=== PATIENT | male | born 1970 | race Caucasian/White ===

== ENCOUNTER 2018-12-08 14:32 | Emergency (ER) | payer OTHER ==
[~2018-12-08] VITALS: Ht 177.8 cm; Wt 92.5 kg
[2018-12-08 14:55] VITALS: BP 161/97
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
--- NOTE | 2018-12-08 15:24 | RAD ---
Examination: 3 views of the right shoulder HISTORY: History of right shoulder injury COMPARISON: None available. Findings/ impression: The humerus head is within the glenoid. There is widened appearance of the acromioclavicular joint could be type I separation or there may be mild osteolysis of the distal clavicle. Comparison to contralateral side is recommended. Electronically signed by: Faisal Galarza MD (12/08/2018 3:21 PM) [id number]
[2018-12-08] MEDS ORDERED: HYDR-3164 PO (15:39)
== END 2018-12-08 15:52 | disposition home or self-care (01) ==
LOC: ER 14:32
DX: S49.91XA Unspecified injury of right shoulder and upper arm, initial encounter (principal); E78.00 Pure hypercholesterolemia, unspecified; Z98.890 Other specified postprocedural states; X50.0XXA Overexertion from strenuous movement or load, initial encounter; Y93.I9 Activity, other involving external motion; Y92.89 Other specified places as the place of occurrence of the external cause; Y99.8 Other external cause status
CPT/HCPCS: 73030; 99284

== ENCOUNTER → 2020-05-19 | Outpatient (CLI) | payer SELFPAY ==
[~2020-05-19] MED LIST: CARDIO; HYDR-3164 PO; LOSA-73 PO; SIMV10TA15 PO; UBID30CA9 PO
--- NOTE | 2020-05-19 09:54 | PDOC1 ---
INITIAL PAIN CONSULT DATE OF SERVICE: DOS: DATE: 05/19/20 TIME: 09:47 CHIEF COMPLAINT: Chief Complaint: Low back and left lower extremity pain HISTORY OF PRESENT ILLNESS: 49-year-old male presents history of pain low back left lower extremity for about 2 months not the result of any specific injury or accident that he is aware of is getting worse with time and is any increasing with radiation of pain in the low back in the posterior gluteus posterior thigh posterior lateral thigh lateral anterior thigh anterior medial thigh posterior calf anterior calf and into the foot and toes involving the sole of the foot with numbness and tingling. Patient describes the pain in the back is constant throbbing and in the leg is sharp and shooting with tingling numbness radiating into the left lower extremity. Patient reports no symptoms on the right side and significant fatigability with the left lower extremity walking more than about 5 to 10 minutes. Patient reports he must sit and rest usually better with sitting or laying down but has awakened from sleep about every 3 hours or so at night. Patient ports is not effective bowel bladder control can affect his ability walk it is more than about 10 to 15 minutes. Patient has had chiropractic treatment as well as traction done and has an aversion table which he is been using at home as well also doing daily exercises and stretching strengthening. Patient taking oxycodone 10 mg which does help but only "takes the edge off". Patient did have MRI scan lumbar spine showing L4-5 thickening of the ligamentum flavum with a 5 mm left eccentric disc protrusion disc material extends into the neural foramen bilaterally greater degree on the left with moderate right and moderate to severe left foraminal stenosis. Patient rates his disability rating 0-10 10 being the worst is a 9-10 in all categories family home responsibilities recreation social activity occupation sexual behavior life support activities and self-care activities. Patient reports no loss of motor function but significant fatigability left lower extremity with activity. PAST MEDICAL HISTORY: PMH: Hypertension, thyroid tumor nonmalignant PREVIOUS SURGERIES: Past Surgical Hx: Partial thyroidectomy 1997, right knee repair 1975, vasectomy 2000, right shoulder repair 2003, rotator cuff right shoulder repair also 2003, cervical fusion 2010 CURRENT MEDICATIONS: Current Meds: Active Scripts Medications Dose Route/Sig Max Daily Dose Days Date Category [cardio tab] 2 Tab BID 05/19/20 Reported Coq-10 (Ubidecarenone) 30 Mg Capsule 30 Mg PO DAILY 05/19/20 Reported Simvastatin 10 Mg Tablet 1 Tab PO QHS 05/19/20 Reported Losartan Potassium 50 Mg Tablet 50 Mg PO DAILY 05/19/20 Reported [place] 5-325 Tablet (Acetaminophen/Hydrocodone Bitart) 1 Each Tablet 1 Tab PO BID 5 12/08/18 Rx ALLERGIES; Allergies: Coded Allergies: No Known Drug Allergies (Unverified , 12/08/18) FAMILY HISTORY: Family Hx: No major medical problems or conditions that he is aware of SOCIAL HISTORY: Social Hx: Patient does not drink alcohol , smokes less than a pack a day has for 30 years and continues to smoke is lives with his spouse has 1 child living at home. Does not use any illegal illicit or recreational drugs. 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 Extraocular movements are intact and symmetrical. Oral cavity: Mucous membranes moist and pink. Dentition is intact. NECK: Shows anterior throat supple without palpable lymphadenopathy noted. Swallow reflex symmetrical. CHEST: Shows normal on inspection. Breath sounds are clear bilaterally, distant but no rales rhonchi or wheezes auscultated. HEART: Shows S1, S2 clear. No murmurs auscultated. ABDOMEN: Soft, nontender, nondistended, obese. No palpable organomegaly is noted. No rebound or guarding demonstrated. BACK: Shows spine grossly in the midline. Normal-appearing cervical lordotic curvature. There is slightly increased thoracic kyphosis, some minor flattening of the lumbar lordotic curvature. Lumbar paraspinous muscles show symmetrical on inspection, on palpation shows some moderate tenderness diffusely throughout the upper, middle and lower distribution of the paraspinous muscles bilaterally and also into the lower thoracic paraspinous musculature, firm and tender, but without specific trigger points, without radiation of pain. The patient has good rotational motion of the lumbar spine, both laterally as well as extension and flexion without significant difficulty. No tenderness over the spinous processes, sacrum or sacroiliac regions. EXTREMITIES: Lower extremities show deep tendon reflexes 2+ in the patellar and tendo calcaneus tendons. Motor exam is 5 on a scale of 5 with right dorsiflexion, extension, quadriceps and hamstring flexion and 4/5 on the left. Peripheral pulses are 1+ posterior tibial. No peripheral edema is noted bilaterally. Lower extremities are warm and dry to touch, equal in color and appearance. Straight leg raise noted to be negative on the right, left side is positive at approximately 40 degrees decreased with knee flexion. Gaenslen's and Adrian's maneuvers are negative as well. The patient is able to stand, stand on his toes without significant difficulty or loss of balance walks with a slight favoring gait does appear to favor the left lower extremity slightly not use any assistive device such as canes or walkers to ambulate. SKIN: Shows warm and dry, good turgor. No edema. No sores, rashes or bruising throughout. IMPRESSION: Impression: 49-year-old male with approximate 2-month history increasing pain low back left lower extremity in a radicular pattern following L4-5 dermatomal distribution MRI scan lumbar spine as noted Hypertension History of thyroid tumor Plan: Options were discussed with patient including conservative medical management, physical therapies, and interventional techniques. We will try with most conservative measures first and have patient undergo physical therapy and lumbar traction. Patient reports he has a facility that can perform this but is not had this done yet and we will have this tried first if not significant improved we did discuss potential interventional techniques can considering a lumbar epidural steroid injection, translaminar approach at the L4-5 level, If not significantly improved. Patient to follow-up after lumbar traction. CRISTOBAL BEDOYA MD May 19, 2020 09:53
== END | disposition home or self-care (01) ==
LOC: PNCL 08:16
PROVIDERS: ATTEND Anesthesiology
DX: M54.5 Low back pain (principal); M79.605 Pain in left leg; I10 Essential (primary) hypertension; F17.210 Nicotine dependence, cigarettes, uncomplicated; Z79.899 Other long term (current) drug therapy; Z98.890 Other specified postprocedural states; Z72.89 Other problems related to lifestyle
CPT/HCPCS: G0463

== ENCOUNTER → 2020-06-20 | Outpatient (CLI) | payer OTHER ==
[~2020-06-20] MED LIST changes: +DOCU-109 PO; +LISI20TA18 PO; +METH-38 PO; +NAPR-695 PO; +OMEP20TA63 PO; +VENTOLIN HFA18 GM INH
[2020-06-20 15:23] LABS: BASO # 0.2 x10^3/uL (0.0-0.2); BASO % 1 % (0-3); EOS # 0.2 x10^3/uL (0.0-0.7); EOS % 1 % (0-3); HEMOGLOBIN 14.8 g/dL (13.0-17.5); LYMPH % 24 % (24-48); MEAN CORPUSCULAR HEMOGLOBIN 33 pg (25-35); MEAN CORPUSCULAR HGB CONC 34 g/dL (31-37); MEAN CORPUSCULAR VOLUME 97 fL (79-100); MONO # 0.9 x10^3/uL (0.0-1.1); MONO % 7 % (0-9); NEUT # 8.5 x10^3/uL (1.8-7.7); NEUT % 67 % (31-73); PLATELET COUNT 318 x10^3/uL (140-400); RED BLOOD COUNT 4.52 x10^6/uL (4.30-5.70); RED CELL DISTRIBUTION WIDTH 13.4 % (11.5-14.5); WHITE BLOOD COUNT 12.7 x10^3/uL (4.0-11.0)
[2020-06-20 15:46] LABS: ALBUMIN 4.2 g/dL (3.4-5.0); ALBUMIN/GLOBULIN RATIO 1.4 (1.0-1.7); CALCIUM 9.8 mg/dL (8.5-10.1); CREATININE 0.8 mg/dL (0.7-1.3); GFR 102.3; POTASSIUM 5.3 mmol/L (3.5-5.1); TOTAL BILIRUBIN 0.3 mg/dL (0.2-1.0); TOTAL PROTEIN 7.2 g/dL (6.4-8.2)
== END ==
LOC: SURGPAT 13:20
PROVIDERS: ATTEND Neurological Surgery
DX: Z01.812 Encounter for preprocedural laboratory examination (principal); M51.16 Intervertebral disc disorders with radiculopathy, lumbar region; Z20.828 Contact with and (suspected) exposure to other viral communicable diseases
CPT/HCPCS: 80053; 85025; 87641; U0003

== ENCOUNTER 2020-06-23 07:12 | Day surgery (SDC) | payer OTHER ==
[~2020-06-23] VITALS: Ht 177.8 cm; Wt 88.5 kg
--- NOTE | 2020-06-23 06:36 | PREOP HP ---
DATE OF SERVICE: 06/23/2020 PREOPERATIVE HISTORY AND PHYSICAL DATE OF SURGERY: 06/23/2020 HISTORY OF PRESENT ILLNESS: The patient is a pleasant 49-year-old man who was having difficulty with low back pain and pain that radiates to his left buttock and left hip. He also reports numbness in his left posterior leg, ankles and toes. He feels that his left leg is weak. The problem began about 2 months ago without inciting event. His pain is 10/10. He says the pain is constant. Any activity increases his pain. There is no comfortable position. He is taking oxycodone every 4 hours. He saw a chiropractor, which gave him very minimal relief. He is scheduled for an epidural injection, but has not received that as of yet. He has been wearing a lumbar support brace. CURRENT MEDICATIONS: Oxycodone, lisinopril, simvastatin. PAST MEDICAL HISTORY: Cervical injury, hypertension. PAST SURGICAL HISTORY: Thyroid surgery, shoulder surgery, ACDF C5-C6, C6-C7 with Dr. Dioni Velez in 2009. FAMILY HISTORY: Diabetes, heart disease. 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 . Smokes 1 pack of cigarettes per day for 30 years. Drinks alcohol 1-2 times per month. ALLERGIES: No known drug allergies. REVIEW OF SYSTEMS: A 12-point review of systems was performed and is noncontributory except that mentioned above. PHYSICAL EXAMINATION: GENERAL: Alert, pleasant, in moderate distress because of pain. HEAD: Normocephalic, atraumatic. SKIN: Warm and dry. MUSCULOSKELETAL: Lumbar paraspinal muscle bulk is normal, restricted range of motion of the lumbar spine, [id number] tenderness of the lower lumbar spine with palpation, normal range of motion of the lower extremities bilaterally. EXTREMITIES: No clubbing, cyanosis or edema. NEUROLOGIC: Alert and oriented x 3, normal recent and remote memory, strength 5/5 in the lower extremities except 4+/5 EHL, sensory was intact to light touch in the lower extremities except decreased sensation in the L5 distribution. Reflexes were present and symmetric in the lower extremities, positive straight leg raising on the left, negative straight leg raising on the right, antalgic gait. IMAGING: I reviewed a lumbar MRI scan. On that study, there is a left-sided disk herniation at L4-L5 with moderate to marked left lateral recess stenosis including the left L5 nerve root impingement and finizpqk-ph-tqgylu left foraminal stenosis. ASSESSMENT AND PLAN: I believe his symptoms are related to the herniated disk at L4-L5 on the left. He has severe pain. The problem has been present for 2 months. He has weakness and decreased sensation associated with this. I recommended a microdiskectomy at L4-L5 on the left. I spoke with him about the surgery, the rationale, the technique, the risk and the expected postoperative course. He understands and would like to go ahead. NIDHI FREIRE MD DR: ANIKET/vincent JOB#: [id number] / [id number]
[~2020-06-23 07:12] MED LIST changes: +BACITRACIN 50,000 UNIT in IV NORMAL SALINE 1000ML BAG 1,000 ML IRR ONE; -DOCU-109 PO; +HYDROmorphone 2 MG/ML VIAL IV PRN; +IV RINGERS,LACTATED 1000ML 1,000 ML IV SCH; +LIDOCAINE 1% PF 2 ML VIAL. ID PRN; -METH-38 PO; +ONDANSETRON PF 4 MG/2 ML VIAL. IV PRN; +fentaNYL PF VIAL 100 MCG/2 ML VIAL IV PRN
[2020-06-23] MEDS ORDERED: GELATIN SPONGE SIZE 100. ONE (07:13)
[2020-06-23] MEDS ORDERED: KETOROLAC 60 MG/2 ML VIAL. ONE (07:13)
[2020-06-23] MEDS ORDERED: LIDOCAINE 1%/EPI 1:100,000 20 ML VIAL. ONE (07:13)
[2020-06-23] MEDS ORDERED: THROMBIN TOPICAL 20,000 UNIT SPRAY.SYRN KIT TP ONE (07:13)
[2020-06-23] MEDS ORDERED: fentaNYL PF VIAL 100 MCG/2 ML VIAL ONE ×3 (07:25→11:22)
[2020-06-23] MEDS ORDERED: PROPOFOL 10 MG/ML (20ML) VIAL. IV ONE (07:25)
[2020-06-23] MEDS ORDERED: SUCCINYLCHOLINE 200 MG/10 ML VIAL. ONE (07:25)
[2020-06-23] MEDS ORDERED: LIDOCAINE 2% PF 5 ML VIAL. ONE (07:25)
[2020-06-23] MEDS ORDERED: ONDANSETRON PF 4 MG/2 ML VIAL. ONE (07:26)
[2020-06-23] MEDS ORDERED: MIDAZOLAM HCL/PF 2 MG/2 ML VIAL. ONE (07:26)
[2020-06-23] MEDS ORDERED: DEXAMETHASONE SOD PHOS 20 MG/5 ML VIAL. ONE (07:26)
[2020-06-23] MEDS ORDERED: PROPOFOL 100 ML IV ONE (07:27)
[2020-06-23] MEDS ORDERED: REMIFENTANIL 1 MG VIAL. IV ONE ×2 (07:28→10:13)
[2020-06-23] MEDS ORDERED: PHENYLEPHRINE 10 MG/ML VIAL. ONE (07:33)
[2020-06-23] MEDS ORDERED: ROCURONIUM 50 MG/5 ML VIAL. ONE (07:34)
[2020-06-23] MEDS ORDERED: 0.9 % SODIUM CHLORIDE 20 ML VIAL. IJ ONE (10:13)
[2020-06-23] MEDS ORDERED: NEOSTIGMINE METHYLSULFATE 5 MG/5 ML SYRINGE. ONE (10:34)
[2020-06-23] MEDS ORDERED: SEVOFLURANE 61 TO 120 MINUTES. IH ONE (10:34)
[2020-06-23] MEDS ORDERED: GLYCOPYRROLATE 1 MG/5 ML VIAL. ONE (10:34)
[2020-06-23] MEDS: fentaNYL PF VIAL 100 MCG/2 ML VIAL IV PRN ×2 (11:25→11:42)
[2020-06-23] MEDS ORDERED: METH-38 PO (11:27)
[2020-06-23] MEDS ORDERED: DOCU-109 PO (11:27)
--- NOTE | 2020-06-23 11:28 | DISCH ---
DISCHARGE INSTRUCTIONS Condition on Discharge Condition on Discharge: Stable Activity After Discharge Activity Instructions for Disc: Activity as tolerated, Avoid exertion Other activity instructions: no driving for a week Bathing Instructions: Shower-keep dressing dry Lifting Instructions after Dis: No heavy lifting, No pulling or pushing, Do not lift >10 pounds Diet after Discharge Additional Diet Restrictions: resume home diet Wound Incision Care Wound/Incision Care: Ice to area for comfort Other wound/incision instructi: may remove dressing in 48 hours if dry then may shower, no soaking Contacting the after DC Call your doctor for: Concerns you may have Follow-Up Follow up with: Dr. Freire's nurse in 2 weeks [phone] NIDHI FREIRE MD Jun 23, 2020 11:28
[2020-06-23] MEDS ORDERED: MORPHINE SULFATE 2 MG/ML VIAL. ONE ×2 (11:44→12:06)
[2020-06-23] MEDS ORDERED: PROCHLORPERAZINE 10 MG/2 ML VIAL. ONE (11:45)
[2020-06-23] MEDS: MORPHINE SULFATE 2 MG/ML VIAL. IV PRN ×4 (11:51→12:33)
[2020-06-23] MEDS: PROCHLORPERAZINE 10 MG/2 ML VIAL. IV PRN ×2 (11:51→12:10)
[2020-06-23] MEDS ORDERED: HYDROcodone/APAP 5/325MG 1 TAB TABLET PO ONE (12:00)
[2020-06-23 12:40] VITALS: BP 132/76
--- NOTE | 2020-06-23 13:09 | OP ---
DATE OF SURGERY: 06/23/2020 PREOPERATIVE DIAGNOSIS: Herniated lumbar disc, L4-L5, left, with left lumbar radiculopathy. POSTOPERATIVE DIAGNOSIS: Herniated lumbar disc, L4-L5, left, with left lumbar radiculopathy. OPERATION PERFORMED: Hemilaminotomy and microdiscectomy, L4-L5, left. The operation was done with EMG monitoring, SSEP monitoring, fluoroscopy, microscopic dissection. SURGEON: Shawn Freire M.D. DIRECTOR OF SUSTAINABLE DESIGN: JAGRUTI Gramajo assisted with the surgery. She assisted with the exposure, the microdiscectomy as well as the closure. OPERATIVE INDICATIONS: The patient is a pleasant 49-year-old who developed intractable back and left leg pain, which failed conservative measures. On imaging studies, he was found to have a herniated lumbar disc at L4-L5 on the left and I recommended lumbar microsurgery. He understood the surgery, the risks, technique and expected postoperative course and wished to go ahead. DESCRIPTION OF PROCEDURE: Following general endotracheal anesthesia, the patient was positioned prone on the Agustin table. Lumbar region prepped and draped in standard fashion. STEPHANIE hose and AV impulse boots were applied for DVT prophylaxis. The microscope was draped. Fluoroscopy was draped and brought into field. Monitoring was established. Ancef 2 grams was given less than 1 hour prior to initiation of the surgery. Using fluoroscopic guidance, incision was made at L4-5. I dissected down through skin and subcutaneous tissue, reflected the paraspinal muscles, placed a Fallon microdisk retractor. I brought in the microscope, burred down a generous hemilaminotomy on the left, peeled away thickened ligamentum flavum and performed a generous partial foraminotomy. I retracted the root medially and entered the disc space and performed discectomy with pituitary rongeurs. Then, I began to explore further inferiorly and found a large subligamentous fragment, which I teased back and removed, which fully decompressed the entire region. I further explored. There were no retained fragments. The wound area was very well decompressed. The disc bulging, which had been present initially, had resolved. The root was very free. I irrigated copiously with antibiotic solution. Hemostasis was excellent. I closed the wound then with absorbable sutures and skin was closed with 4-0 subcuticular stitch. The operation went very well and the patient taken to recovery room in excellent condition. I was quite pleased with the surgery. SHAWN FREIRE MD DR: MORENA/vincent JOB#: [id number] / [id number] REGINALD
--- NOTE | 2020-06-27 14:08 | PATHOLOGY ---
[facility] Accession Number: [id number] . 01 Material submitted: . vertebral column - LUMBAR DISC AND DECOMPRESSION . 01 Clinical history: . LUMBAR HERNIATED DISC LUMBAR MICRODISCECTOMY L4-5 . 02 Diagnosis: Segments of fibrocartilaginous, fibroadipose, and skeletal muscle tissue and bone, lumbar disc and decompression: - Degenerative changes of fibrocartilaginous tissue. (JPM:[facility] 06/27/2020) QTP 06/27/2020 1155 Local . 02 Comment: There is no evidence of an acute inflammatory process or malignancy. (JPM:[facility] 06/27/2020) . 02 Electronically signed: . Jesus Lopez MD, Pathologist NPI- [id number] . 01 Gross description: . Received in formalin, labeled "Juan, Paulino, lumbar disc and decompression" are multiple irregular segments of mccarty-brown bone and soft tissue measuring 2.9 x 2.6 x 0.4 cm in aggregate. The specimen is entirely submitted in cassette A1.([facility]; 06/24/2020) GZA/GZA 06/27/2020 1154 Local . 02 Pathologist provided ICD-10: M51.36 . 02 CPT . [id number] Specimen Comment: A courtesy copy of this report has been sent to [phone], [phone] Specimen Comment: [phone], Specimen Comment: Report sent to ,DR ZAVALA / DR ISAACS Specimen Comment: A duplicate report has been generated due to demographic updates. Performed at: [address], [place], [place] [id number] MD Donnell Burrell MD Phone: [phone] Performed at: 02 [facility] [address], [place] [id number] MD Jesus Lopez MD Phone: [phone]
== END 2020-06-23 13:40 | disposition home or self-care (01) ==
LOC: SURG 07:12
PROVIDERS: ATTEND Neurological Surgery
DX: M51.16 Intervertebral disc disorders with radiculopathy, lumbar region (principal); E78.00 Pure hypercholesterolemia, unspecified; I10 Essential (primary) hypertension; K21.9 Gastro-esophageal reflux disease without esophagitis; M19.90 Unspecified osteoarthritis, unspecified site; F17.210 Nicotine dependence, cigarettes, uncomplicated; Z79.82 Long term (current) use of aspirin; Z79.899 Other long term (current) drug therapy; Z98.890 Other specified postprocedural states
CPT/HCPCS: 63030; 88304; 97116; 97162; 97530; J0330; J0690; J0780; J1100; J1885; J2250; J2270; J2370; J2405; J2704; J2710; J3010; J3490; J7030; 76000

== ENCOUNTER → 2020-10-05 | Outpatient (CLI) | payer OTHER ==
[~2020-10-05] MED LIST changes: -BACITRACIN 50,000 UNIT in IV NORMAL SALINE 1000ML BAG 1,000 ML IRR ONE; +BUPIVACAINE MPF 0.25% 10 ML VIAL. ONE; +DOCU-109 PO; -HYDROmorphone 2 MG/ML VIAL IV PRN; +IOHEXOL 180 MG/ML 10 ML VIAL. ONE; -IV RINGERS,LACTATED 1000ML 1,000 ML IV SCH; -LIDOCAINE 1% PF 2 ML VIAL. ID PRN; +METH-38 PO; -ONDANSETRON PF 4 MG/2 ML VIAL. IV PRN; -fentaNYL PF VIAL 100 MCG/2 ML VIAL IV PRN; +methylPREDNISolone ACETATE 80 MG/ML VIAL. ONE
--- NOTE | 2020-10-05 13:40 | PDOC ---
Progress Note - Pain Clinic Date of Service: DOS: DATE: 10/05/20 TIME: 13:37 Diagnosis: Dx: Lumbar to colopathy with lumbar degenerative disease and lumbar herniated disc History or Present Illness: HPI: 50-year-old male returns in follow-up status post initial evaluation and subsequent surgery with L4-5 laminectomy and discectomy patient did well after the surgery for few days and the pain returned significantly in the low back and left lower extremity. Patient had a new MRI scan showing recurrent disc herniation at the L4-5 level on the left side with significant radiculopathy in that dermatomal distribution. 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 Patient rates his pain is a 10 on scale 10 is worse over the past week 8+ on average and a 6 its least is an 8 today. Patient reports no new motor or sensory deficits no bowel or bladder incontinence. Physical Exam: VS: Blood pressure is 119/84 pulse 94 respirations 16 temperature is 98.4 F height is 5 feet 10 inches weight is 196 pounds PE: PHYSICAL EXAMINATION: GENERAL: The patient is awake, alert, oriented, appropriate, very pleasant demeanor HEENT: Shows normocephalic, atraumatic. Extraocular movements are intact and symmetrical. Oral cavity: Mucous membranes moist and pink. NECK: Shows anterior throat supple without palpable lymphadenopathy noted. Swallow reflex symmetrical. CHEST: Shows normal on inspection. Breath sounds are clear bilaterally, distant but no rales rhonchi. HEART: Shows S1, S2 clear. No murmurs auscultated. ABDOMEN: Soft, nontender, nondistended, soft. No palpable organomegaly is noted. No rebound or guarding demonstrated. BACK: Shows spine grossly in the midline. Normal-appearing cervical lordotic curvature. There is slightly increased thoracic kyphosis, some minor flattening of the lumbar lordotic curvature. Lumbar paraspinous muscles show symmetrical on inspection, on palpation shows some moderate tenderness diffusely throughout the upper, middle and lower distribution of the paraspinous muscles without specific trigger points, without radiation of pain. The patient has good rotational motion of the lumbar spine, both laterally as well as extension and flexion without significant difficulty. No tenderness over the spinous processes, sacrum or sacroiliac regions. EXTREMITIES: Lower extremities show deep tendon reflexes 2+ in the patellar and tendo calcaneus tendons. Motor exam is 5 on a scale of 5 with right dorsiflexion, extension, quadriceps and hamstring flexion and 4/5 on the left. Peripheral pulses are 1+ posterior tibial. No peripheral edema is noted bilaterally. Lower extremities are warm and dry to touch, equal in color and appearance. SKIN: Shows warm and dry, good turgor. No edema. No sores, rashes or bruising throughout. Procedure: Procedure: Options were discussed with the patient. Patient chart reviews his current medication regimen updated current review of systems updated today as well. We will proceed with a left-sided L4-5 transforaminal epidural injection today with fluoroscopic guidance. Risks were discussed including but not limited to: Bleeding, infection, possibility of epidural hematoma and subsequent neurological compromise, dural puncture, headaches, spinal cord and/or nerve damage, potential injection into the vertebral artery at that level and permanent ischemic damage, side effects of steroid medication, and poor results regarding pain control. Patient understands and wished to proceed. Patient will return to clinic in approximate 2 weeks for follow-up, was counseled as to return appointment activity level and side effects to be aware of. Medication Injected: Med Injected: Under sterile prep and drape patient was placed in prone position using C-arm f luoroscopic guidance to identify the L4-5 distribution oblique and slightly cephalad angled C arm. The left L4-5 target was identified and using lidocaine for anesthetizing the skin 22-gauge Frank pencil point needle was then used to enter the skin and into the subcutaneous tissues using direct C-arm fluoroscopic guidance to guide the needle into the transforaminal aspect of the left L4-5 vertebrae this was confirmed with lateral views showing the needle tip in the superior aspect of the paravertebral region. Aspiration was noted to be negative, -1.5 cc of contrast was then injected with good spread both medially into the epidural space as well as laterally along the nerve root without uptake and without distribution and uptake on digital subtraction. At this time, a solution containing 2 cc of 0.25% bupivacaine and 80 mg of Depo-Medrol was then injected. Needle was withdrawn and sterile bandage was applied. Patient tolerated procedure well had no immediate complications Condition at Discharge: Condition at Discharge: Condition at discharge stable, patient tolerated procedure well and had no co mplications. CRISTOBAL BEDOYA MD Oct 05, 2020 13:40
== END | disposition home or self-care (01) ==
LOC: PNCL 12:51
PROVIDERS: ATTEND Anesthesiology
DX: M51.36 Other intervertebral disc degeneration, lumbar region (principal); I10 Essential (primary) hypertension; E78.00 Pure hypercholesterolemia, unspecified; K21.9 Gastro-esophageal reflux disease without esophagitis; M19.90 Unspecified osteoarthritis, unspecified site; F17.210 Nicotine dependence, cigarettes, uncomplicated; Z79.899 Other long term (current) drug therapy; Z98.890 Other specified postprocedural states; Z72.89 Other problems related to lifestyle
CPT/HCPCS: 64483; J1040; J3490; Q9965

== ENCOUNTER → 2020-10-20 | Outpatient (CLI) | payer OTHER ==
[~2020-10-20] MED LIST changes: -BUPIVACAINE MPF 0.25% 10 ML VIAL. ONE; +methylPREDNISolone ACETATE 40 MG/ML VIAL. ONE
--- NOTE | 2020-10-20 11:03 | PDOC ---
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 Patient reports 1 day of decreased pain in the left leg and the pain returned fairly significantly after that. Patient reports still pain in the low back left lower extremity posterior gluteus lateral thigh anterior thigh medial thigh lateral calf and anterior calf described as aching and sharp shooting in the left leg stabbing radiating can be severe and unbearable with weightbearing walking standing or changing positions. Patient rates the pain is a 10 on scale 10 is worse over the past week 7 on average 7 its least is a 7 today. Patient reports no new motor or sensory deficits no new bowel or bladder incontinence or complaints. Physical Exam: VS: Blood pressure is 126/81 pulse 77 respirations 16 temperature 98.4 F height is 5 feet 10 inches weight is 193 pounds PE: PHYSICAL EXAMINATION: GENERAL: The patient is awake, alert, oriented, appropriate, very pleasant demeanor HEENT: Shows normocephalic, atraumatic. Extraocular movements are intact and symmetrical. Oral cavity: Mucous membranes moist and pink. Dentition is intact. NECK: Shows anterior throat supple without palpable lymphadenopathy noted. Swallow reflex symmetrical. CHEST: Shows normal on inspection. Breath sounds are clear bilaterally, coarse but no rales rhonchi or wheezes auscultated. HEART: Shows S1, S2 clear. No murmurs auscultated. ABDOMEN: Soft, nontender, nondistended obese. No palpable organomegaly is noted. No rebound or guarding demonstrated. BACK: Shows spine grossly in the midline. Normal-appearing cervical lordotic curvature. There is slightly increased thoracic kyphosis, some minor flattening of the lumbar lordotic curvature. Lumbar paraspinous muscles show symmetrical on inspection, on palpation shows some moderate tenderness diffusely throughout the upper, middle and lower distribution of the paraspinous muscles without specific trigger points, without radiation of pain. The patient has good rotational motion of the lumbar spine, both laterally as well as extension and flexion without significant difficulty. No tenderness over the spinous processes, sacrum or sacroiliac regions. EXTREMITIES: Lower extremities show deep tendon reflexes 2+ in the patellar and tendo calcaneus tendons. Motor exam is 5 on a scale of 5 with right dorsiflexion, extension, quadriceps and hamstring flexion and 4/5 on the left. Peripheral pulses are 1 posterior tibial. No peripheral edema is noted bilaterally. Lower extremities are warm and dry to touch, equal in color and appearance. SKIN: Shows warm and dry, good turgor. No edema. No sores, rashes or bruising throughout. Procedure: Procedure: Options were discussed with the patient. Patient chart was reviewed his his current medication regimen updated current review of systems updated today as well. We will proceed with a lumbar epidural steroid injection state translaminar approach with fluoroscopic guidance. Risks were discussed including but not limited to: Bleeding, infection, possibility of epidural hematoma and subsequent neurological compromise, dural puncture, headaches, spinal cord and/or nerve damage, side effects of steroid medication, and poor results regarding pain control. Patient understands and wished to proceed. Patient return to clinic in approximate 2 weeks for follow-up, was counseled as return appointment activity level and side effects to be aware of. Medication Injected: Med Injected: Procedure is lumbar epidural steroid injection under local anesthetic using sterile prep and drape at the L4-5 level using C-arm fluoroscopic guidance in both AP and lateral views medications injected is 120 mg Depo-Medrol + 10 mL preservative-free normal saline and 2 mL contrast- condition at discharge is stable patient tolerated procedure well had no complications. Condition at Discharge: Condition at Discharge: Condition at discharge stable, patient tolerated the procedure well and had no complications. CRISTOBAL BEDOYA MD October 20, 2020 11:03
--- NOTE | 2020-10-20 11:04 | PDOC4 ---
PROCEDURE Procedure Patient was consented for lumbar epidural steroid injection. Risks were dis cussed including but not limited to: Bleeding, infection, possibility of epidural hematoma and subsequent neurological compromise, dural puncture, headaches, spinal cord and/or nerve damage, side effects of steroid medication, and poor results regarding pain control. Patient understands and wished to proceed. Procedure is lumbar epidural steroid injection under local anesthetic using sterile prep and drape at the L4-5 level using C-arm fluoroscopic guidance in both AP and lateral views medications injected is 120 mg Depo-Medrol + 10 mL preservative-free normal saline and 2 mL contrast- condition at discharge is stable patient tolerated procedure well had no complications. CRISTOBAL BEDOYA MD October 20, 2020 11:04
== END | disposition home or self-care (01) ==
LOC: PNCL 10:03
PROVIDERS: ATTEND Anesthesiology
DX: M51.16 Intervertebral disc disorders with radiculopathy, lumbar region (principal); M96.1 Postlaminectomy syndrome, not elsewhere classified; I10 Essential (primary) hypertension; E78.00 Pure hypercholesterolemia, unspecified; K21.9 Gastro-esophageal reflux disease without esophagitis; M19.90 Unspecified osteoarthritis, unspecified site; F17.210 Nicotine dependence, cigarettes, uncomplicated; Z79.899 Other long term (current) drug therapy; Z98.890 Other specified postprocedural states; Z72.89 Other problems related to lifestyle
CPT/HCPCS: 62323; J1030; J1040; Q9965

== ENCOUNTER → 2020-10-28 | Outpatient (CLI) | payer OTHER ==
[~2020-10-28] MED LIST changes: -IOHEXOL 180 MG/ML 10 ML VIAL. ONE; -methylPREDNISolone ACETATE 40 MG/ML VIAL. ONE; -methylPREDNISolone ACETATE 80 MG/ML VIAL. ONE
--- NOTE | 2020-10-28 08:20 | PDOC ---
Progress Note - Pain Clinic Date of Service: DOS: DATE: 10/28/20 TIME: 08:15 Diagnosis: Dx: Lumbar radiculopathy lumbar degenerative disease lumbar herniated disc and lumbar postlaminectomy syndrome History or Present Illness: HPI: 50-year-old male returns follow-up status post lumbar epidural steroid injection x1 and lumbar transforaminal injection x1 patient reports is lumbar epidural steroid traction translaminar approach was much more significantly improving the pain at about 60% in his low back and left lower extremity patient reports is been increase his activity to greater ease and comfort walking with greater ease standing still causes some pain in the low back and left leg but doing much better than after the first injection. Patient reports standing in line is more noticeable when he is moving the pain is not nearly as bad and has not been waking him from sleep as frequently patient reports pain in the low back posterior gluteus posterior lateral thigh lateral anterior thigh anterior medial thigh medial lower leg to the ankle on the left side only patient reports is an 8 on scale 10 is worse over the past week 7 on average 6 its least and is a 6 today. Patient ports aching sharp shooting stabbing radiating the leg constant severe with standing can be unbearable at times but overall doing better than after the first injection. Patient reports no new motor or sensory deficits no new bowel or bladder incontinence patient continues to take diclofenac as well as doing stretching strength exercises from physical therapy on his own. Physical Exam: VS: Blood pressure is 145/88 pulse 85 respirations 16 temperature 90.3 F height is 5 foot 10 inches weight is 196 pounds PE: PHYSICAL EXAMINATION: GENERAL: The patient is awake, alert, oriented, appropriate, very pleasant demeanor HEENT: Shows normocephalic, atraumatic. Extraocular movements are intact and symmetrical. Oral cavity: Mucous membranes moist and pink. Dentition is intact. NECK: Shows anterior throat supple without palpable lymphadenopathy noted. Swallow reflex symmetrical. CHEST: Shows normal on inspection. Breath sounds are clear bilaterally, no rales or rhonchi. HEART: Shows S1, S2 clear. No murmurs auscultated. ABDOMEN: Soft, nontender, nondistended. No palpable organomegaly is noted. No rebound or guarding demonstrated. BACK: Shows spine grossly in the midline. Normal-appearing cervical lordotic curvature. There is slightly increased thoracic kyphosis, some minor flattening of the lumbar lordotic curvature. Lumbar paraspinous muscles show symmetrical on inspection, on palpation shows some moderate tenderness diffusely throughout the upper, middle and lower distribution of the paraspinous muscles, but without specific trigger points, without radiation of pain. The patient has good rotational motion of the lumbar spine, both laterally as well as extension and flexion without significant difficulty. No tenderness over the spinous processes, sacrum or sacroiliac regions. EXTREMITIES: Lower extremities show deep tendon reflexes 2+ in the patellar and tendo calcaneus tendons. Motor exam is 5 on a scale of 5 with right dorsiflex ion, extension, quadriceps and hamstring flexion and 4/5 on the left. Peripheral pulses are 1+ posterior tibial. No peripheral edema is noted bilaterally. Lower extremities are warm and dry. SKIN: Shows warm and dry, good turgor. No edema. No sores, rashes or bruising throughout. Procedure: Procedure: Options discussed with the patient. Patient chart was reviewed his current medication regimen updated current review of systems updated today as well. We will preauthorize patient for second translaminar lumbar epidural steroid injection as he did very well after the last 1 with pain still significantly reduced even after 2 weeks following the injection. Patient continue with stretching strength exercise as well as oral analgesics as currently. Once approved we will plan on translaminar approach L4-5 level lumbar epidural steroid injection with fluoroscopic guidance. Medication Injected: Med Injected: None Condition at Discharge: Condition at Discharge: Condition at discharge is stable. CRISTOBAL BEDOYA MD October 28, 2020 08:20
== END | disposition home or self-care (01) ==
LOC: PNCL 07:55
PROVIDERS: ATTEND Anesthesiology
DX: M51.16 Intervertebral disc disorders with radiculopathy, lumbar region (principal); M96.1 Postlaminectomy syndrome, not elsewhere classified; I10 Essential (primary) hypertension; E78.00 Pure hypercholesterolemia, unspecified; K21.9 Gastro-esophageal reflux disease without esophagitis; M19.90 Unspecified osteoarthritis, unspecified site; F17.210 Nicotine dependence, cigarettes, uncomplicated; Z79.899 Other long term (current) drug therapy; Z98.890 Other specified postprocedural states
CPT/HCPCS: 99212; G0463

== ENCOUNTER → 2020-11-07 | Outpatient (CLI) | payer OTHER ==
--- NOTE | 2020-11-07 15:35 | PDOC ---
Progress Note - Pain Clinic Date of Service: DOS: DATE: 11/07/20 TIME: 15:32 Diagnosis: Dx: Lumbar radiculopathy with lumbar degenerative disc disease lumbar herniated disc and lumbar postlaminectomy History or Present Illness: HPI: 50-year-old male returns for follow-up status post lumbar epidural steroid injection and transforaminal injection. Patient reports that after a few days following his lumbar epidural steroid injection the pain began to decrease significantly in his low back and left leg and numbness in his foot is essentially gone at this time on the left side patient reports has been increase his activity with greater ease and comfort pain walking greater distances doing work activities household activities travel with greater ease and sleeping much better at night patient reports is not awakening from sleep at this time patient reports it took a few days after the last injection but the improvement is about 90% overall. Patient reports occasional pain still in the low back rating to left lower extremity posterior gluteus posterior thigh and calf but very rare patient reports a 4 to scale 10 is worse over the past week 3 on average 1 at its least it is a 1 today patient describes it as sharp on and off in intensity in the low back and left leg. Patient reports he is very pleased with his progress thus far has no new motor or sensory deficits no new bowel or bladder incontinence or other complaints. Physical Exam: VS: Blood pressure 140/76 pulse 76 respirations 16 temperature 98.5 F height 5 feet 10 inches weight 195 pounds PE: PHYSICAL EXAMINATION: GENERAL: The patient is awake, alert, oriented, appropriate, very pleasant demeanor HEENT: Shows normocephalic, atraumatic. Extraocular movements are intact and symmetrical. Oral cavity: Mucous membranes moist and pink. Dentition is intact. NECK: Shows anterior throat supple without palpable lymphadenopathy noted. Swallow reflex symmetrical. CHEST: Shows normal on inspection. Breath sounds are clear bilaterally. HEART: Shows S1, S2 clear. No murmurs auscultated. ABDOMEN: Soft, nontender, nondistended. No palpable organomegaly is noted. No rebound or guarding demonstrated. BACK: Shows spine grossly in the midline. Normal-appearing cervical lordotic curvature. There is slightly increased thoracic kyphosis, some minor flattening of the lumbar lordotic curvature. Well-healed midline surgical scar is again noted. Lumbar paraspinous muscles show symmetrical on inspection, on palpation shows some moderate tenderness diffusely throughout the upper, middle and lower distribution of the paraspinous muscles, but without specific trigger points, without radiation of pain. The patient has good rotational motion of the lumbar spine, both laterally as well as extension and flexion without significant difficulty. EXTREMITIES: Lower extremities show deep tendon reflexes 2+ in the patellar and tendo calcaneus tendons. Motor exam is 5 on a scale of 5 with right dorsiflexion, extension, quadriceps and hamstring flexion and 4/5 on the left. Peripheral pulses are 1+ posterior tibial. No peripheral edema is noted bilaterally. Lower extremities are warm and dry to touch, equal in color and appearance. SKIN: Shows warm and dry, good turgor. No edema. No sores, rashes or bruising throughout. Procedure: Procedure: Options were discussed with patient. Patient's old chart was reviewed his his current medication regimen updated current review of systems updated today as well. We will hold on further injections at this time as patient doing quite a bit better and will try Medrol Dosepak to hopefully relieve the remainder of the radicular pain in the left lower extremity and low back. Patient has preauthorization for additional lumbar epidural steroid injection if needed and this is good until January 26, 2021. We discussed in great detail that if the pain begins to return even remotely becoming worse he will call and get back and as soon as possible and will proceed with a additional lumbar epidural steroid injection. Patient understands and agrees patient is given instructions well side effects aware with the medication. Medication Injected: Med Injected: None Condition at Discharge: Condition at Discharge: Condition at discharge is stable. CRISTOBAL BEDOYA MD November 07, 2020 15:35
== END | disposition home or self-care (01) ==
LOC: PNCL 14:17
PROVIDERS: ATTEND Anesthesiology
DX: M51.16 Intervertebral disc disorders with radiculopathy, lumbar region (principal); M96.1 Postlaminectomy syndrome, not elsewhere classified; M79.605 Pain in left leg; I10 Essential (primary) hypertension; E78.00 Pure hypercholesterolemia, unspecified; K21.9 Gastro-esophageal reflux disease without esophagitis; M19.90 Unspecified osteoarthritis, unspecified site; F17.210 Nicotine dependence, cigarettes, uncomplicated; Z72.89 Other problems related to lifestyle; Z79.899 Other long term (current) drug therapy; Z98.890 Other specified postprocedural states
CPT/HCPCS: 99212; G0463

== ENCOUNTER → 2021-01-23 | Outpatient (CLI) | payer OTHER ==
--- NOTE | 2021-01-23 15:51 | KCIC ---
EXAM: CT CORONARY CALCIUM SCORING. HISTORY: Coronary risk factors. Calcium scoring is requested. Smoking history, hyperlipidemia, smokin g history. COMPARISON: None. FINDINGS: Limited noncontrast CT of the chest was performed for coronary calcium scoring. Refer to e worksheets for full detail. *One or more of the following individualized dose reduction techniques were utilized for this examination: 1. Automated exposure control. 2. Adjustment of the mA and/or kV according to patient size. 3. Use of iterative reconstruction technique. Coronary calcium scoring is as follows: LMA: 0. LAD: 129.1. LCX: 0. RCA: 8.1. PDA: 0. Total: 137.2. The included portions of the chest reveal the following. Bone windows reveal no suspicious lesions. I mages of the upper abdomen reveal no acute abnormality. There are no pathologically enlarged mediastinal lymph nodes. There is no pleural or pericardial effu john. The heart is not enlarged. Lung windows reveal mild atelectasis/scarring in the lingula and right middle lobe. IMPRESSION: 1. Coronary calcium score 137.2. Electronically signed by: Deepthi Rico MD (01/23/2021 3:49 PM) [id number]
== END ==
LOC: KCIC CT 15:07
PROVIDERS: ATTEND Nurse Practitioner Family
DX: F17.200 Nicotine dependence, unspecified, uncomplicated (principal); E78.5 Hyperlipidemia, unspecified; Z82.49 Family history of ischemic heart disease and other diseases of the circulatory system
CPT/HCPCS: 75571

== ENCOUNTER → 2021-05-01 | Outpatient (CLI) | payer OTHER ==
[~2021-05-01] MED LIST changes: +IOHEXOL 180 MG/ML 10 ML VIAL. ONE; +methylPREDNISolone ACETATE 40 MG/ML VIAL. ONE; +methylPREDNISolone ACETATE 80 MG/ML VIAL. ONE
--- NOTE | 2021-05-01 10:03 | PDOC4 ---
Procedure Note: ICD 10 Code: ICD 10 Code: M54.16 M51.36 M 96.1 Procedure Note: Patient was consented for lumbar epidural steroid injection with fluoroscopic guidance. Risks were discussed including but not limited to: Bleeding, infection, possibility of epidural hematoma and subsequent neurological compromise, dural puncture, headaches, spinal cord and/or nerve damage, side effects of steroid medication, and poor results regarding pain control. Patient understands and wished to proceed. Procedure is lumbar epidural steroid injection under local anesthetic using ster ile prep and drape at the L4-5 level using C-arm fluoroscopic guidance in both AP and lateral views medications injected is 120 mg Depo-Medrol +10mL preservative-free normal saline and 2 mL contrast- condition at discharge is stable patient tolerated procedure well had no complications. CRISTOBAL BEDOYA MD May 01, 2021 10:03
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
== END | disposition home or self-care (01) ==
LOC: PNCL 09:15
PROVIDERS: ATTEND Anesthesiology
DX: M51.16 Intervertebral disc disorders with radiculopathy, lumbar region (principal); M96.1 Postlaminectomy syndrome, not elsewhere classified; I10 Essential (primary) hypertension; E78.00 Pure hypercholesterolemia, unspecified; K21.9 Gastro-esophageal reflux disease without esophagitis; M19.90 Unspecified osteoarthritis, unspecified site; F17.210 Nicotine dependence, cigarettes, uncomplicated; Z79.899 Other long term (current) drug therapy; Z98.890 Other specified postprocedural states; Z72.89 Other problems related to lifestyle
CPT/HCPCS: 62323; J1030; J1040; Q9965